=== PATIENT | female | born 1990 | race Two or more races ===

== ENCOUNTER 2020-08-03 22:44 | Emergency (ER) | payer BC ==
[2020-08-03 23:07] VITALS: BP 135/95
--- NOTE | 2020-08-04 00:22 | ER Document Report ---
ED Medical Screen (RME) - General Chief Complaint: Difficulty Swallowing Stated Complaint: SWALLOWED FOREIGN BODY Time Seen by Provider: 08/03/20 23:25 Mode of Arrival: Ambulatory Information source: Patient Notes: HPI; 30-year-old female presents to the emergency room concern for possible foreign body. Patient states she was eating steak approximately 2 hours ago, when she somehow inhaled a piece of steak that got stuck in her throat. States that she tried gagging and vomiting without relief. Still has sensation of foreign body to her throat. States she has been able to tolerate water since it happened. PE: Alert and oriented x3. Speaking in full sentences. Handling her own secretions. Lungs: Clear to auscultation without rales, rhonchi, wheezes. Heart: Regular rate rhythm without murmurs, rubs, gallops. I have greeted and performed a rapid initial assessment of this patient. A comprehensive ED assessment and evaluation of the patient, analysis of test results and completion of the medical decision making process will be conducted by additional ED providers. I have specifically instructed the patient or family members with the patient to immediately return to any nursing staff should anything change in the patient's condition or with their chief complaint. TRAVEL OUTSIDE OF THE [place] IN LAST 30 DAYS: No - Related Data Allergies/Adverse Reactions: No Known Allergies Allergy (Verified 03/18/13 21:38) Home Medications: BCP, nexium, MVI Past Medical History - Social History Frequency of alcohol use: None Drug Abuse: None Pulmonary Medical History: Denies: Hx Asthma, Hx Bronchitis, Hx Pneumonia GI Medical History: Reports: Hx Gastroesophageal Reflux Disease - Immunizations Hx Diphtheria, Pertussis, Tetanus Vaccination: Yes Physical Exam - Vital signs Vitals: Temp Pulse Resp BP Pulse Ox 98.2 F 99 16 135/95 H 99 08/03/20 23:04 08/03/20 23:04 08/03/20 23:04 08/03/20 23:04 08/03/20 23:04 Course - Vital Signs Vital signs: Temp Pulse Resp BP Pulse Ox 98.2 F 99 16 135/95 H 99 08/03/20 23:04 08/03/20 23:04 08/03/20 23:04 08/03/20 23:04 08/03/20 23:04
--- NOTE | 2020-08-04 00:32 | RADIOLOGY REPORT (SQ) ---
Neck soft tissue x-ray two views on 08/03/2020 at 11:43 PM CLINICAL INDICATION: Piece of steak stuck in throat COMPARISON: None FINDINGS: The epiglottis and airway is unremarkable. There is mild reversal of the normal cervical lordosis. There is no prevertebral soft tissue swelling. There is no radiopaque foreign body. IMPRESSION: No acute abnormality.
--- NOTE | 2020-08-04 00:34 | RADIOLOGY REPORT (SQ) ---
CHEST X-RAY 2 view on 08/03/2020 at 11:42 PM CLINICAL INDICATION: Piece of steak stuck in throat COMPARISON: 09/06/2012 FINDINGS: The lungs are clear. There is no radiopaque foreign body. There is no unilateral air trapping to suggest airway foreign body. Cardiac, hilar and mediastinal contours are within normal limits. Pulmonary vascularity is within normal limits. No bony abnormality is noted. IMPRESSION: No active disease.
--- NOTE | 2020-08-04 05:20 | ER Document Report ---
ED General - General Chief Complaint: Difficulty Swallowing Stated Complaint: SWALLOWED FOREIGN BODY Time Seen by Provider: 08/03/20 23:25 Primary Care Provider: RITIKA TOM MD [ACTIVE STAFF] - Follow up in 3-5 days Mode of Arrival: Ambulatory TRAVEL OUTSIDE OF THE [place] IN LAST 30 DAYS: No - HPI Notes: Patient is a 30-year-old female who presents with foreign body sensation in her throat. She states she was eating steak for dinner when she felt like it got stuck in her throat. She had immediate pain. She denies any shortness of breath. She tried to cough. Patient states that she was unable to drink for a while. She states she has had acid reflux before and has had sensation of foreign body in her throat before but this was worse. She had an endoscopy about 10 years ago. She has been able to drink a cup of lemonade in the waiting room. - Related Data Allergies/Adverse Reactions: No Known Allergies Allergy (Verified 03/18/13 21:38) Home Medications: BCP, nexium, MVI Past Medical History - General Information source: Patient - Social History Smoking Status: Never Smoker Frequency of alcohol use: None Drug Abuse: None Family History: Reviewed & Not Pertinent Pulmonary Medical History: Denies: Hx Asthma, Hx Bronchitis, Hx Pneumonia GI Medical History: Reports: Hx Gastroesophageal Reflux Disease - Immunizations Hx Diphtheria, Pertussis, Tetanus Vaccination: Yes Hx Pneumococcal Vaccination: 08/07/00 Review of Systems - Review of Systems Notes: CONSTITUTIONAL: No fever, fatigue or weight loss. SKIN: No rash. HENT: No congestion, ear pain, or sore throat. Positive for foreign body sensation in throat. CARDIOVASCULAR: No chest pain or edema. RESPIRATORY: No cough, shortness of breath, congestion, or wheezing. GASTROINTESTINAL: No abdominal pain, nausea, vomiting, bloody stools or diarrhea. MUSCULOSKELETAL: No joint pain or swelling. NEUROLOGIC: No seizures. No headache, focal weakness or sensory changes. HEMATOLOGIC: No unusual bruising or bleeding. PSYCHIATRIC: No depression or anxiety. Physical Exam - Vital signs Vitals: Temp Pulse Resp BP Pulse Ox 98.2 F 99 16 135/95 H 99 08/03/20 23:04 08/03/20 23:04 08/03/20 23:04 08/03/20 23:04 08/03/20 23:04 - General General appearance: Appears well In distress: None Notes: VITAL SIGNS: Within normal limits. GENERAL: No acute distress, non-toxic appearance. HEAD: Normal with no signs of head trauma. EYES: Conjunctiva normal, no discharge. EARS: Hearing grossly intact. NOSE: Normal. NECK: Normal range of motion, no tenderness, supple, no lymphadenopathy, No adenopathy, no JVD. CHEST: Clear breath sounds bilaterally. No wheezes, rales, or rhonchi. CARDIAC: Regular rate and rhythm. S1 and S2, without murmurs, gallops, or rubs. VASCULAR: No Edema. ABDOMEN: Normal and soft MUSCULOSKELETAL: Good range of motion of all major joints. Extremities without clubbing, cyanosis or edema. NEUROLOGICAL: Alert and oriented x 3. No focal sensory or strength deficits. Speech normal. Follows commands appropriately. PSYCHIATRIC: Normal Affect, judgement and mood. SKIN: Normal appearance with no rashes or lesions. Course - Re-evaluation Re-evalutation: 08/04/20 07:13 Patient appears well on exam. Her work-up is unremarkable. Patient is drinking in the room. She is not nauseous or vomiting. I instructed her to eat a soft diet. She was told to follow-up with GI as she may need an endoscopy.. Patient was given strict return precautions. She is very agreeable to the plan. 08/05/20 05:37 - Vital Signs Vital signs: Temp Pulse Resp BP Pulse Ox 98.2 F 99 16 135/95 H 99 08/03/20 23:04 08/03/20 23:04 08/03/20 23:04 08/03/20 23:04 08/03/20 23:04 - Laboratory Results Critical Laboratory Results Reviewed: No Critical Results - Radiology Results Critical Radiology Results Reviewed: No Critical Results Discharge - Discharge Clinical Impression: Sensation of foreign body Dysphagia Qualifiers: Dysphagia type: unspecified Qualified Code(s): R13.10 - Dysphagia, unspecified Condition: Stable Disposition: HOME, SELF-CARE Instructions: Dysphagia ([facility]) Additional Instructions: Your work-up today is reassuring. Please make sure that you eat a soft diet until your symptoms improve. Please follow-up with GI as they may need to do an endoscopy. Return to the ER for any change or worsening of symptoms. Referrals: RITIKA TOM MD [ACTIVE STAFF] - Follow up in 3-5 days
== END 2020-08-04 06:10 | disposition home or self-care (01) ==
LOC: ER 22:44
DX: R09.89 Other specified symptoms and signs involving the circulatory and respiratory systems (principal); R13.10 Dysphagia, unspecified; K21.9 Gastro-esophageal reflux disease without esophagitis; Z79.899 Other long term (current) drug therapy; Z79.3 Long term (current) use of hormonal contraceptives
CPT/HCPCS: 70360; 71046; 99284